=== PATIENT | female | born 1980 | race African-American/Black ===

== ENCOUNTER 2025-03-11 22:30 | Emergency (ER) | payer OTHER ==
[~2025-03-11] VITALS: Ht 160 cm; Wt 78.5 kg
[2025-03-11] MEDS: LORAZEPAM 0.5 MG TAB PO ONE (23:54)
[2025-03-11] MEDS: KETOROLAC TROMETHAMINE 30 MG/ML VIAL IV STA (23:54)
[2025-03-12] MEDS ORDERED: IOPAMIDOL 370 MG/ML 100 ML INFUS..BTL INJ ONE (01:46)
[2025-03-12] MEDS ORDERED: CYCLOBENZAPRINE5 MG PO (03:04)
[2025-03-12] MEDS ORDERED: KETOROLAC TROME10 MG PO (03:04)
[2025-03-12 03:28] VITALS: PULSE 71; RESP 17; TEMP 97.9
[2025-03-12 03:29] VITALS: BP 122/71; PULSE 71; RESP 17; TEMP 97.9; O2SAT 98
== END 2025-03-12 03:32 | disposition home or self-care (01) ==
LOC: FSED 22:33
DX: M54.2 Cervicalgia (principal); R51.9 Headache, unspecified; R07.9 Chest pain, unspecified
CPT/HCPCS: 0223U; 70450; 70491; 71046; 80053; 80307; 81003; 81025; 84484; 85025; 87400; 93005; 96374; 99284; J1885; Q9967